=== PATIENT | female | born 1995 | race Caucasian/White ===

== ENCOUNTER 2025-08-10 01:30 | Emergency (ER) | payer SELFPAY ==
[2025-08-10 01:33] VITALS: BP 120/78
--- NOTE | 2025-08-10 01:49 | ED.GENMED ---
History of Present Illness
General
Chief Complaint: Skin Surface Trauma
Source: patient
Exam Limitations: none
Time Seen by Provider: 08/10/25 01:43
Nursing documentation reviewed up to this point in time: agreed with
History of Present Illness
History of Present Illness:
30-year-old female with past medical history of migraines presents to the ER today with concerns of a laceration to her scalp. 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
and hit her head on the top of the ambulance door. She reports that this caused her scalp to bleed. She denies headache. She denies loss of consciousness. She denies any other injuries. She denies neck pain. She did recieve her tetanus within
the past 2 years.
Review of Systems
Review of Systems
All Other Systems: ROS reviewed and negative except as documented in HPI and ROS
Phy Exam
Physical Exam
Physical Exam:
General: Patient is well appearing and in no acute distress; non-toxic
Skin: Warm and dry, no rashes or lesions
Head: No tenderness to palpation of the facial bones. 2 cm laceration noted to the right anterior scalp.
Neck: No midline cervical spinal tenderness
Eyes: Sclera non-icteric. EOMs intact.
Cardiac: Regular rate and rhythm, no murmurs
Peripheral Vascular: Brisk capillary refill
Neuro: CN II-XII intact, no focal neurologic deficits. Normal gait.
Psychiatric: Appropriate mood and affect.
Course
Vital Signs
Initial and Last Documented VS:
Initial Vital Signs
Temp Pulse Resp BP Pulse Ox
98.6 F 67 18 120/78 97
08/10/25 01:33 08/10/25 01:33 08/10/25 01:33 08/10/25 01:33 08/10/25 01:33
Last Documented Vital Signs
Temp Pulse Resp BP Pulse Ox
98.6 F 67 18 120/78 97
08/10/25 01:33 08/10/25 01:33 08/10/25 01:33 08/10/25 01:33 08/10/25 01:49
Procedures
Laceration Closure
Right Anterior Scalp:
Status of Wound: clean
Size of Wound in cm: 2
Description of Wound Edges: sharp
Preparation: cleaned with saline
Anesthesia: 1% Lidocaine with epi
Revision/Debridement: routine- no revision
Wound exploration: explored to base- no FB
Type of Closure: single layer closure
Skin Closure Material: skin anand
Number of sutures: 3
MDM/Problems Addressed
Differential Diagnosis Includes:
laceration, abrasion, contusion
MDM/Problems Addressed:
30-year-old female presents to the ER today with concerns of a laceration to her scalp after she hit her head on the ambulance door getting into the ambulance. She reports that there is mild bleeding at the time but bleeding since is controlled.
Physical exam she is a 2 cm laceration to the top of her scalp which was repaired with anand. Patient tolerated procedure well. She is up-to-date on her tetanus vaccination. Discussed when to return for removal and discussed keeping wound dry
for 24 hours. Discussed tricked return precautions. Patient stable for discharge.
*Pulse Oximetry
SaO2: 97
Oxygen Mode of Delivery: Room air
Patient hypoxic: no
*Critical Care Note
Total Time (30-74mins, 75-104mins- exclusive of procedures): Not Applicable
ED Attending Note
-
Portions of this chart may have been created with voice recognition software.� Occasional wrong word or��sound alike� substitutions may have occurred due to the inherent limitations of voice recognition software.
Discharge Plan
Departure
Patient Disposition: Home (Routine Discharge)
Date of Disposition: 08/10/25
Time of Disposition: 02:12
Patient with high blood pressure during this ER visit?: Yes
Condition: Good
Discharge Problem:
Laceration of scalp
Instructions: Wound Care (DC), Laceration Repair With Anand (DC), BLOOD PRESSURE
Activity Restrictions/Additional Instructions:
Please have your anand removed in 7 to 10 days. Please keep wound dry for 24 hours. After 24 hours, you can get the wound wet in shower. Please not scrub the wound or apply hydroperoxide over the wound. You can apply bacitracin few times a day
as needed.
Please follow-up with your primary care provider.
PLEASE RETURN TO ER SHOULD YOU DEVELOP PERSISTENT HEADACHES, INTRACTABLE NAUSEA OR VOMITING, LOSS OF CONSCIOUSNESS, NECK PAIN, CHEST PAIN OR SHORTNESS OF BREATH, LOSS OF VISION, OR ANY OTHER SIGNS OR SYMPTOMS WORRISOME TO YOU.
Interventions
Interventions:
*Risk Screen - Suicide Last Done: 08/10/25 01:33
*General Assessment Last Done: 08/10/25 01:33
*Neglect/Abuse Screening Last Done: 08/10/25 01:33
*ED- Fall Risk Assessment Last Done: 08/10/25 01:33
*ED COVID-19 Vaccine History Last Done: 08/10/25 01:33
*ED Influenza Vaccine History Last Done: 08/10/25 01:33
*Nursing Disposition Last Done: 08/10/25 02:17
ED-Skin Assessment Last Done: 08/10/25 01:45
Discharge Date and Time
Discharge Date/Time: 08/10/25 02:26
Print Language: FINNISH
== END 2025-08-10 02:26 | disposition home or self-care (01) ==
LOC: EMR 01:30
PROVIDERS: EMERGENCY PHYSICIAN Emergency Medicine; FAMILY PHYSICIAN Family Medicine
DX: S01.01XA Laceration without foreign body of scalp, initial encounter (principal); R03.0 Elevated blood-pressure reading, without diagnosis of hypertension; W22.09XA Striking against other stationary object, initial encounter; Y92.818 Other transport vehicle as the place of occurrence of the external cause; Y99.0 Civilian activity done for income or pay
CPT/HCPCS: 99283; 12001